=== PATIENT | male | born 1980 | race Caucasian/White ===

== ENCOUNTER 2019-04-01 20:46 | Emergency (ER) | payer SELFPAY ==
[~2019-04-01] VITALS: Ht 175.3 cm; Wt 75.0 kg
[2019-04-01] MEDS ORDERED: AMPH25CA PO (20:54)
[2019-04-01] MEDS: BUPIVACAINE/EPI/PF 0.5% 30 ML VIAL SQ ONE (22:10)
[2019-04-01 23:14] VITALS: BP 140/80
== END 2019-04-01 23:15 | disposition home or self-care (01) ==
LOC: EMS 20:48
DX: K02.9 Dental caries, unspecified (principal); F17.210 Nicotine dependence, cigarettes, uncomplicated
CPT/HCPCS: 64400; 99284; J3490